=== PATIENT | male | born 1965 | race Two or more races ===

== ENCOUNTER 2024-09-14 09:08 | Emergency (ER) | payer OTHER ==
[~2024-09-14] VITALS: Ht 172.7 cm; Wt 86.2 kg
[2024-09-14] MEDS ORDERED: TAMS0.4C PO (09:29)
[2024-09-14] MEDS ORDERED: CHILDREN'S ASPI81 MG PO (09:29)
[2024-09-14] MEDS ORDERED: ZESTRIL20 MG PO (09:30)
[2024-09-14] MEDS ORDERED: SOTALOL AF80 MG PO (09:30)
[2024-09-14] MEDS ORDERED: ATORVASTATIN CA20 MG PO (09:30)
[2024-09-14] MEDS ORDERED: BUDESONIDE 0.5 MG/2 ML AMPUL.NEB IH STA (09:59)
[2024-09-14] MEDS ORDERED: ALBUTEROL SULFATE 3 ML/2.5 MG AMPUL.NEB IH STA (09:59)
[2024-09-14] MEDS ORDERED: BUDESONIDE 0.5 MG/2 ML AMPUL.NEB IH ONE (10:18)
[2024-09-14] MEDS ORDERED: ALBUTEROL SULFATE 3 ML/2.5 MG AMPUL.NEB IH ONE (10:19)
[2024-09-14 10:28] LABS: HEMATOCRIT 45.6 % (39.0-48.0); HEMOGLOBIN 15.4 g/dL (13-16.00); MEAN CELL VOLUME 86.1 fL (80.0-100.00); MEAN CORPUSCULAR HGB CONC 33.7 g/dl (32.0-36.0); PLATELET COUNT 220 K/uL (150-450); RED CELL DISTRIBUTION WIDTH 13.4 % (11.5-14.5)
[2024-09-14 13:04] VITALS: BP 133/83; O2SAT 98
== END 2024-09-14 13:05 | disposition home or self-care (01) ==
LOC: ER 09:11
PROVIDERS: Emergency Medicine
DX: R53.81 Other malaise (principal); J40 Bronchitis, not specified as acute or chronic; Z20.822 Contact with and (suspected) exposure to COVID-19; Z88.0 Allergy status to penicillin